=== PATIENT | male | born 1995 | race Caucasian/White ===

== ENCOUNTER 2017-12-29 14:52 | Emergency (ER) | payer BC ==
[2017-12-29 15:01] VITALS: TEMP 98.2
--- NOTE | 2017-12-29 15:24 | EDPHY ---
H & P Stated Complaint: lac to R palm 1 wk ago;seen at [facility] 2 days later;now site swollen,painful Time Seen by Provider: 12/29/17 15:24 - Personal History Current Tetanus Diphtheria and Acellular Pertussis (TDAP): Yes - Medical/Surgical History Other PMH: healthy per pt - Social History Smoking Status: Never smoked Constitutional: Initial Vital Signs Temperature (C) 36.8 C 12/29/17 14:55 Heart Rate 85 12/29/17 14:55 Respiratory Rate 18 12/29/17 14:55 Blood Pressure 115/80 12/29/17 14:55 O2 Sat (%) 95 12/29/17 14:55 O2 Delivery Mode Room Air Allergies/Adverse Reactions: No Known Allergies Allergy (Unverified 12/29/17 14:58) Home Medications: Medication Instructions Recorded Hydrocodone/APAP 5/325 [[place] 1 - 2 each PO Q4-6PRN PRN #20 tab 12/29/17 5/325] Medical Decision Making - Diagnostics Imaging Results: Imaging Impressions Hand X-Ray 12/29/17 15:42 Impression: Negative right hand radiographs. Imaging: I viewed and interpreted images myself ED Course/Re-evaluation: CHIEF COMPLAINT: Hand laceration/infection HISTORY OF PRESENT ILLNESS: The patient is a 22 y/o male with a history of psoriasis complaining of worsening pain in his right hand 6 days after he sustained a laceration. He was cleaning a glass table when the table broke and cut the palmar aspect of his right hand. He was evaluated at the [facility] clinic and had the wound thoroughly cleaned and was healing well. Yesterday he developed throbbing pain around the laceration and subsequently had progressive swelling down his hand. Pain worsened to the point where he had difficulty typing or writing today. He returned to [facility] and was referred here with concern for an infection. He does not believe there is glass or other foreign body in the cut. He denies fever or other symptoms. He is not on any immunosuppressant medications for his psoriasis and is otherwise healthy. REVIEW OF SYSTEMS: A 10 point review of systems was performed and is negative with the exception of the elements mentioned in the history of present illness. PHYSICAL EXAM: HR, BP, O2 Sat, RR. Temp noted General Appearance: Alert, well hydrated, appropriate, and non-toxic appearing. Head: Atraumatic without scalp tenderness or obvious injury Eyes: Pupils equal, round, reactive to light and accommodation, EOMI, no trauma , no injection. Nose: Atraumatic, no rhinorrhea, clear. Throat: Mucus membranes moist. Neck: Supple Respiratory: No respiratory distress Cardiovascular: Right radial pulse intact. Good capillary refill all extremities. Musculoskeletal: Right hand: healing laceration over hypothenar eminence, pain on active and passive extension of little and ring fingers, fluctuance, erythema , and tenderness of hypothenar eminence. Otherwise normal active ROM of all extremities, atraumatic. Neurological: Alert, appropriate, and interactive. Right little and ring fingers held in slight flexion in position of comfort, motor and sensory function of all fingers intact. Skin: Guttate psoriasis, good turgor, no nodules on palpation. 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 MEDICAL DECISION MAKING: This is a 22 y/o male with psoriasis who is immunocompetent and presents with a 24-hour history of worsening pain and swelling in his right hand 6 days after suffering a laceration from glass along the hypothenar eminence. He has positive Kanavel signs of his right little and ring fingers on exam with fluctuance of the hypothenar eminence underlying the original laceration. No systemic signs or symptoms. Plan for IV, labs, antibiotics, hand surgery consult. 1538: Consulted with Dr. Steiner, hand surgery. He will see patient in his office at 11:00am tomorrow, NPO status in the morning. Recommends IV dose of Vancomycin while here. Discussed plan with the patient. 1gm IV Vancomycin ordered. 1730: Patient is flushed after Vancomycin infusion. 25mg IV Benadryl ordered. - Data Points Medications Given: Discontinued Medications Vancomycin HCl 1 gm/ Sodium (Chloride) 250 mls @ 250 mls/hr IV EDNOW ONE Stop: 12/29/17 17:29 Last Admin: 12/29/17 16:13 Dose: 250 mls Departure - Departure Disposition: Home, Routine, Self-Care Clinical Impression: Flexor tenosynovitis of finger Condition: Good Instructions: Tenosynovitis (ED) Additional Instructions: 1. Go to Dr. Steiner's office at 11:00am tomorrow morning without fail. 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 2. Do not eat or drink anything after waking up tomorrow prior to being evaluated by Dr. Steiner. 3. Return to the ED for any dramatically worsening symptoms in the meantime. 4. Use 600mg ibuprofen every 6-8 hours as needed for pain over the next few days. 5. Use Vicodin as prescribed as needed for severe pain. This medication will make you drowsy, do not use prior to driving. Referrals: Romero Steiner MD [Medical Doctor] - As per Instructions Stand Alone Forms: School Excuse Prescriptions: Hydrocodone/APAP 5/325 [[place] 5/325] 1 - 2 each PO Q4-6PRN PRN #20 tab PRN Reason: Pain, Moderate Report Scribed for: Cuauhtemoc [place] Report Scribed by: Tiarra Sanderson Date of Report: 12/29/17 Time of Report: 15:29
[2017-12-29] MEDS ORDERED: VANCOMYCIN HCL/NORMAL SALINE 250 ML IV ONE (15:42)
[2017-12-29] MEDS ORDERED: VANCOMYCIN 1 GM in NS 250 ML IV ONE (16:30)
[2017-12-29] MEDS ORDERED: methylPREDNISolone SOD SUCC 125 MG/2 ML VIAL ONE (17:35)
[2017-12-29] MEDS ORDERED: methylPREDNISolone SOD SUCC 125 MG/2 ML VIAL IVP ONE (17:40)
[2017-12-29 17:41] VITALS: RESP 16
[2017-12-29 18:40] VITALS: BP 129/68; PULSE 85; O2SAT 96
== END 2017-12-29 18:40 | disposition home or self-care (01) ==
DX: M65.841 Other synovitis and tenosynovitis, right hand (principal)
CPT/HCPCS: 96374; J1200; J2930; J3370